=== PATIENT | male | born 1985 | race Caucasian/White ===

== ENCOUNTER 2018-03-17 11:16 | Emergency (ER) | payer SELFPAY, OTHER ==
[2018-03-17] MEDS: IBUPROFEN 600 MG TAB PO (12:04)
== END 2018-03-17 13:59 | disposition home or self-care (01) ==
LOC: FTE 11:16
DX: I82.612 Acute embolism and thrombosis of superficial veins of left upper extremity (principal)
CPT/HCPCS: 93971; 99284-25